=== PATIENT | female | born 1980 | race American Indian/Alaskan Native ===

== ENCOUNTER 2016-11-07 11:49 | Day surgery (SDC) | payer BC, OTHER ==
[~2016-11-07 11:49] MED LIST: WATER FOR IRRIG STERILE IR ONE
--- NOTE | 2016-11-07 12:54 | Anesthesia Consultation ---
Anesthesia Consult and Med Hx Date of service: 11/07/16 - Airway Anesthetic Teeth Evaluation: Good ROM Head & Neck: Adequate Mental/Hyoid Distance: Adequate Mallampati Class: Class II Intubation Access Assessment: Probably Good - Pulmonary Exam CTA: Yes - Cardiac Exam Cardiac Exam: RRR - Pre-Operative Health Status ASA Pre-Surgery Classification: ASA2 - Pre-Anesthesia Comment Pre-Anesthesia Comments: recent nausea, will need RSI - Endocrine Hx Renal Disease: Yes (stones) - Other Systems Hx Obesity: Yes (morbid)
[2016-11-07] MEDS ORDERED: PERCOCET 5/325 PO PRN (12:55)
[2016-11-07] MEDS ORDERED: ZOFRAN IV PRN (12:55)
--- NOTE | 2016-11-07 12:55 | Anesthesia Day of Surgery ---
Anesthesia Day of Surgery - Day of Surgery Patient Examined: Yes Patient H&P Reviewed: Yes Patient is NPO: Yes
[2016-11-07] MEDS ORDERED: ANCEF/STERILE WATER 2 GM/20 ML IV NR (13:00)
[2016-11-07] MEDS ORDERED: DILAUDID IV ONE (13:00)
[2016-11-07] MEDS ORDERED: PEPCID IV NR (13:00)
[2016-11-07] MEDS ORDERED: NACL 0.9% 1000 ML 1,000 ML IV SCH (13:00)
[2016-11-07] MEDS ORDERED: ZOFRAN IV ONE (14:10)
[2016-11-07] MEDS ORDERED: DIPRIVAN 10 MG/ML IV ONE (15:12)
[2016-11-07] MEDS ORDERED: DILAUDID ONE (15:12)
[2016-11-07] MEDS ORDERED: VERSED ONE (15:33)
[2016-11-07] MEDS ORDERED: DECADRON ONE (15:44)
[2016-11-07] MEDS ORDERED: ZOFRAN ONE (15:44)
[2016-11-07] MEDS ORDERED: ROBINUL ONE (15:45)
[2016-11-07] MEDS ORDERED: WATER FOR IRRIG STERILE IR ONE (15:46)
--- NOTE | 2016-11-07 15:59 | Short Stay Summary ---
Short Stay Documentation Date of service: 11/07/16 - History H&P: obtained from office - Allergies and Medications Current Medications: Allergies adhesive Adverse Reaction (Verified 11/07/16 12:38) Rash latex Adverse Reaction (Verified 11/07/16 12:38) Rash Home Medications Medication Instructions Recorded Confirmed Last Taken Type Acetaminophen/Codeine [Tylenol 1 tab PO 11/07/16 11/07/16 11/07/16 09:30 History /Codeine # 3 tab] Ciprofloxacin HCl [Ciprofloxacin 500 mg PO BID 11/07/16 11/07/16 11/07/16 09:30 History TAB] acetaZOLAMIDE [Diamox TAB] 500 mg PO TID 11/07/16 11/07/16 10/24/16 09:00 History Active Medications Cefazolin Sodium (Ancef/Sterile Water 2 Gm/20 Ml) 2 gm IV PREOP NR Stop: 11/07/16 23:00 Famotidine (Pepcid) 20 mg IV PREOP NR Stop: 11/07/16 23:00 Last Admin: 11/07/16 13:02 Dose: 20 mg Hydromorphone HCl (Dilaudid) 0.5 mg IV Q10MIN PRN PRN Reason: Pain , Severe (7-10) Stop: 11/10/16 12:56 Sodium Chloride (Nacl 0.9% 1000 Ml) 1,000 mls @ 42 mls/hr IV DIRECT MELISSA Last Admin: 11/07/16 13:00 Dose: 42 mls/hr - Brief post op/procedure progress note Date of procedure: 11/07/16 Pre-op diagnosis: left stone 7mm Post-op diagnosis: same Procedure: cysto, stent, left Anesthesia: GETA Surgeon: HIRA JARAMILLO Estimated blood loss: none Pathology: none Condition: stable - Hospital course Hospital course: jaron ruvalcaba zofran on chart - Disposition Condition at discharge: Stable Disposition: DC-01 TO HOME OR SELFCARE Short Stay Discharge Plan Follow up with: DR MADISON [Other] - 7 Days
--- NOTE | 2016-11-07 16:12 | Post Anesthesia Evaluation ---
- Post Anesthesia Evaluation Patient Participated: Yes Airway Patent: Yes Stable Respiratory Function: Yes Temp > 96.8F: Yes Pain Manageable: Yes Adequeate Hydration: Yes Anesthesia Complications: No
[2016-11-07] MEDS: DILAUDID IV PRN ×2 (16:27→16:35)
[2016-11-07] MEDS ORDERED: NORCO 5/325 PO PRN (16:49)
[2016-11-07 17:51] VITALS: BP 118/73
--- NOTE | 2016-11-07 19:49 | Operative Report ---
PREOPERATIVE DIAGNOSIS: Left proximal ureteral stone 7 mm. POSTOPERATIVE DIAGNOSIS: Left proximal ureteral stone 7 mm. PROCEDURE: Cystoscopy, bilateral retrograde pyelograms, left double-J stent placement (6 Canadian 24 cm with short internal string). SURGEON: Jesus Stark MD. ANESTHESIA: General. ESTIMATED BLOOD LOSS: Minimal. FLUIDS: Crystalloid. COMPLICATIONS: No complications. INDICATIONS: This is a 36-year-old female seen in the office by Dr. Meyers with severe pain. CT revealed 7 mm proximal ureteral stone with hydronephrosis. Due to her pain, she presents for surgical intervention. Risks, benefits, and complications were explained to the patient and her . DESCRIPTION OF PROCEDURE: The patient was taken to the operative suite and placed in a supine position. After adequate general anesthesia, placed in a dorsal lithotomy position. Prepped and draped in a sterile fashion. Pancystourethroscopy was performed with 22-Canadian Storz cystoscope. No bladder pathology. Bilateral retrograde pyelograms were obtained with an 8 Canadian Darryl catheter and 8 mL of contrast. No filling defects or obstruction on the right. Left side obvious hydronephrosis proximally. 0.035 Glidewire was placed and 6-Canadian 24 cm double-J stent with a short internal string was left indwelling. The patient was extubated and taken to recovery room in stable condition. She will go home on Cipro, [place], and Zofran. JOB# [id number] [facility]
--- NOTE | 2016-11-08 10:06 | Fluoroscopy Report ---
FLUOROSCOPY RETROGRADE UROGRAPHY History: Left ureteral stone. Findings: Fluoroscopy was provided by radiology during retrograde urography by urology. There are no comparison studies at this facility. Flow Worker film of the abdomen suggests an approximate 5 mm calcification overlying the expected course of the proximal left ureter. Followup images after injection of contrast in the left collecting system demonstrate this is within the left ureter and mildly obstructs the proximal left collecting system. Subsequent images demonstrate placement of a left ureteral stent which is in good position and adequately drains the left renal collecting system on the final image. The right pyelogram is normal. Impression: Left ureteral stone. Left ureteral stent placement.
== END 2016-11-07 17:50 | disposition home or self-care (01) ==
LOC: OR 11:49
PROVIDERS: ATTEND Urology
DX: N13.2 Hydronephrosis with renal and ureteral calculous obstruction (principal); E66.01 Morbid (severe) obesity due to excess calories; Z91.040 Latex allergy status; Z91.048 Other nonmedicinal substance allergy status
CPT/HCPCS: 52332; 74420; 81025; A4217; C1758; C1769; C2617; J0690; J1100; J1170; J2250; J2405; J2704; J7030; Q9967

== ENCOUNTER 2016-12-10 08:23 | Day surgery (SDC) | payer OTHER, BC ==
[~2016-12-10 08:23] MED LIST changes: +PEPCID PO NR; -WATER FOR IRRIG STERILE IR ONE
[2016-12-10] MEDS ORDERED: NACL BACTERIOSTATIC INFILTRATI ONE (09:16)
[2016-12-10] MEDS: NACL 0.9% 1000 ML 1,000 ML IV SCH ×2 (09:20→12:23)
--- NOTE | 2016-12-10 09:33 | Anesthesia Consultation ---
Anesthesia Consult and Med Hx Date of service: 12/10/16 - Airway Anesthetic Teeth Evaluation: Good ROM Head & Neck: Adequate Mental/Hyoid Distance: Adequate Mallampati Class: Class II Intubation Access Assessment: Probably Good - Pulmonary Exam CTA: Yes - Cardiac Exam Cardiac Exam: RRR - Pre-Operative Health Status ASA Pre-Surgery Classification: ASA3 Proposed Anesthetic Plan: General - Pulmonary Hx Smoking: No Hx Sleep Apnea: No (PILAR PRE SCREEN LOW RISK) - Cardiovascular System Hx Hypertension: No - Central Nervous System Hx Back Pain: Yes (FROM STONE) - Endocrine Hx Renal Disease: Yes (stones) - Other Systems Hx Cancer: No Hx Obesity: Yes (morbid, BMI > 40)
--- NOTE | 2016-12-10 09:33 | Anesthesia Day of Surgery ---
Anesthesia Day of Surgery - Day of Surgery Patient Examined: Yes Patient H&P Reviewed: Yes Patient is NPO: Yes
[2016-12-10] MEDS ORDERED: VERSED IV NR (09:40)
[2016-12-10] MEDS ORDERED: ANCEF/STERILE WATER 2 GM/20 ML IV NR (10:00)
[2016-12-10] MEDS ORDERED: ZOFRAN IV PRN (10:00)
[2016-12-10] MEDS ORDERED: XYLOCAINE MPF 2% ONE (10:34)
[2016-12-10] MEDS ORDERED: DIPRIVAN 10 MG/ML IV ONE (10:34)
[2016-12-10] MEDS ORDERED: SUBLIMAZE ONE (10:34)
[2016-12-10] MEDS ORDERED: ZOFRAN ONE (10:35)
[2016-12-10] MEDS ORDERED: OMNIPAQUE 300 MG/50 ML (CATH LAB) IV ONE (11:06)
[2016-12-10] MEDS ORDERED: WATER FOR IRRIG STERILE IR ONE ×2 (11:07)
[2016-12-10] MEDS ORDERED: DECADRON ONE (11:07)
[2016-12-10] MEDS ORDERED: NEO SYNEPHRINE/NS Syringe(OR USE) IV ONE (11:30)
--- NOTE | 2016-12-10 11:50 | Post Operative Note ---
Date of procedure: 12/10/16 Pre-op diagnosis: left ureteral stones Post-op diagnosis: same Findings: same Procedure: cysto ureteroscopy laser stent Anesthesia: BIANCAA Surgeon: MYRA SALAZAR Estimated blood loss: none Pathology: none Condition: stable Disposition: PACU
--- NOTE | 2016-12-10 11:52 | Discharge Summary ---
Short Stay Discharge Plan Activity: other (no strasining ) Weight Bearing Status: Full Weight Bearing Diet: low fat, low cholesterol Special Instructions: other (inc fluids ) Durable Medical Equipment Needed Upon Discharge: other (j stent) Follow up with: FLAKITO WALLACE [Other] - 7 Days
[2016-12-10] MEDS: DILAUDID IV PRN ×4 (11:58→12:29)
--- NOTE | 2016-12-10 12:03 | Post Anesthesia Evaluation ---
- Post Anesthesia Evaluation Patient Participated: Yes Airway Patent: Yes Stable Respiratory Function: Yes Nausea/Vomiting: No Temp > 96.8F: Yes Pain Manageable: Yes Adequeate Hydration: Yes Anesthesia Complications: No Block Receding Appropriately: Not Applicable Patient on Ventilator: No
[2016-12-10 13:45] VITALS: BP 123/67
--- NOTE | 2016-12-10 14:33 | Fluoroscopy Report ---
FLUOROSCOPY RETROGRADE UROGRAPHY HISTORY: Calculus of left ureter DESCRIPTION OF PROCEDURE: Fluoroscopy was provided by radiology during retrograde urography by urology. 10 fluoroscopic images were captured. The images demonstrate left ureteral stent exchange and left ureteral calculus removal. Holmium laser and ureteroscopy were performed. The new left ureteral stent adequately drains the left collecting system on the final image. Please correlate with the procedural report by urology. IMPRESSION: Successful left ureteral stent exchange and removal of a left ureteral stone.
--- NOTE | 2016-12-10 15:51 | Operative Report ---
PREOPERATIVE DIAGNOSIS: Left upper ureteral stones, large stone burden, post-lithotripsy. POSTOPERATIVE DIAGNOSES: Left upper ureteral stones, large stone burden, post-lithotripsy. PROCEDURE: Cystoscopy, left retrograde, left ureteroscopy with laser of large stone burden, nephroscopy and insertion of double-J stent. SURGEON: Karel Meyers MD ANESTHESIA: General. FINDINGS: This is a woman with large steinstrasse and fractured stone in the upper ureter, now presents for followup second stage procedure in a staged fashion. DESCRIPTION OF PROCEDURE: The patient brought to the operating room and placed on the operating table. Following induction of anesthesia, placed in lithotomy position, prepped and draped in usual sterile fashion. Cystourethroscopy revealed a stent, which was withdrawn. A wire coiled up in the kidney through the stent. The stone burden was quite large. Rigid ureteroscopy allowed us to place a wire. The stones were too high to use a rigid scope, so we used the flexible scope. Using the single action pump, stone was well visualized and broken into about 10 to 15 pieces. We followed any large pieces into the kidney and fractured them with the laser at 8 louis. The patient tolerated the procedure well. The stone fractured well. A ____ coiled in the kidney and the bladder. The patient tolerated the procedure well and brought to recovery in stable condition. Family notified. JOB# [id number] [facility]
== END 2016-12-10 14:20 | disposition home or self-care (01) ==
LOC: OR 08:23
PROVIDERS: ATTEND Urology
DX: N20.1 Calculus of ureter (principal); E66.01 Morbid (severe) obesity due to excess calories; Z68.41 Body mass index [BMI] 40.0-44.9, adult
CPT/HCPCS: 52356; 74420; 81025; A4217; C1758; C1769; C2617; J0690; J1100; J1170; J2250; J2370; J2405; J2704; J3010; J7030; Q9967